=== PATIENT | male | born 1960 | race Caucasian/White ===

== ENCOUNTER 2018-12-05 16:43 | Emergency (ER) | payer SELFPAY ==
[2018-12-05] MEDS ORDERED: Sodium Chloride 0.9% 1,000 ML IV ONE ×2 (17:33→18:37)
--- NOTE | 2018-12-05 17:40 | EDM.PDOC ---
ED HPI GENERAL MEDICAL PROBLEM - General Chief Complaint: Diabetic Complaint Stated Complaint: DIABETIC ISSUES - SENT FROM [facility] Time Seen by Provider: 12/05/18 17:03 Source of Information: Reports: Patient, Old Records, Provider History Limitations: Reports: No Limitations - History of Present Illness INITIAL COMMENTS - FREE TEXT/NARRATIVE: 58 yo M w h/o DM2 w/ h/o hyperosmolarity, HTN, HLD, CAD, CKD II comes in today after being sent from [facility] for elevated glucose and urine ketones. Fasting glucose was found to be 433 and Ketones 40. He is asymptomatic. Only complaint is he is hungry as he has not eaten since last night. He does admit to not taking any of his medications for the past 10 days d/t "being busy" and "not having the money for my medications". He has not checked his sugars at home as he ran out of strips and "probably needs a new monitor", but states he tries to maintain a "good diet". He used to be on Farxiga, but stopped taking it "a long time ago" d/t it being too expensive. He has seen a diabetic counselor in the past. PCP: He was seeing Dr. Dumont but has since switched to NATALYA Leo at [place]. Labs from Clinic: CMP remarkable for Glu 433 (fasting), BUN 31, Cr 1.59, Cl 95, CO2 23, AGap 24, Alk Phos 167, A1C 11 Lipid Panel remarkable for Cholesterol 264, Tri 158, LDL 174 UA remarkable for Ketones 40, Protein 30, Glu >1000, Bacteria rare Urine microalbumin 150mg/L, Micro/Cr 30-300 - Related Data Allergies Allergy/AdvReac Type Severity Reaction Status Date / Time No Known Allergies Allergy Verified 12/05/18 16:49 Past Medical History HEENT History: Reports: Cataract, Impaired Vision Other HEENT History: wears eyeglasses. Start of cataracts. Cardiovascular History: Reports: High Cholesterol, Hypertension Respiratory History: Reports: Pneumonia, Recurrent Musculoskeletal History: Reports: Fracture Neurological History: Reports: Concussion, Head Trauma Endocrine/Metabolic History: Reports: Diabetes, Type II - Infectious Disease History Infectious Disease History: Reports: Measles, Mumps - Past Surgical History HEENT Surgical History: Reports: Tonsillectomy Musculoskeletal Surgical History: Reports: Shoulder Surgery Social & Family History - Tobacco Use Smoking Status *Q: Never Smoker Second Hand Smoke Exposure: No - Caffeine Use Caffeine Use: Reports: Coffee, Soda - Recreational Drug Use Recreational Drug Use: No ED ROS GENERAL - Review of Systems Review Of Systems: ROS reveals no pertinent complaints other than HPI. ED EXAM GENERAL NO PERIP PULSE - Physical Exam Exam: See Below Exam Limited By: No Limitations General Appearance: Alert, WD/WN, No Apparent Distress Eye Exam: Bilateral Eye: EOMI, Normal Inspection, PERRL Ears: Normal External Exam, Hearing Grossly Normal Throat/Mouth: Normal Inspection, Normal Lips, Normal Teeth, Normal Gums, Normal Oropharynx, Normal Voice, No Airway Compromise Head: Atraumatic, Normocephalic Neck: Normal Inspection, Supple, Non-Tender, Full Range of Motion Respiratory/Chest: No Respiratory Distress, Lungs Clear, Normal Breath Sounds, No Accessory Muscle Use, Chest Non-Tender Cardiovascular: Normal Peripheral Pulses, Regular Rate, Rhythm, No Edema, No Gallop, No JVD, No Murmur, No Rub GI/Abdominal: Normal Bowel Sounds, Soft, Non-Tender, No Organomegaly, No Distention, No Abnormal Bruit, No Mass Back Exam: Normal Inspection, Full Range of Motion, NT Neurological: Alert, Oriented, CN II-XII Intact, Normal Cognition, Normal Gait, Normal Reflexes, No Motor/Sensory Deficits Psychiatric: Normal Affect, Normal Mood Skin Exam: Warm, Dry, Intact Course - Vital Signs Last Recorded V/S: Last Vital Signs Temp 96.0 F 12/05/18 16:45 Pulse 98 12/05/18 16:45 Resp 20 12/05/18 16:45 BP 103/64 12/05/18 16:45 Pulse Ox 99 12/05/18 16:45 - Orders/Labs/Meds Orders: Active Orders 24 hr Category Date Time Status Blood Glucose Check, Bedside [RC] ONETIME Care 12/05/18 18:37 Active Labs: Laboratory Tests 12/05/18 12/05/18 12/05/18 Range/Units 17:00 17:00 18:23 Puncture Site Lt radial ABG pH 7.38 (7.35-7.45) ABG pCO2 33.8 L (35.0-45.0) mmHg ABG pO2 85.0 (80.0-100.0) mmHg ABG HCO3 19.4 L (22.0-26.0) meq/L ABG O2 Saturation 95.5 L (96.0-97.0) % ABG Base Excess -4.4 L (-2-2.0) Jeff Test Positive A-a Gradient 7 mmHg O2 Delivery Device Room air FiO2 21.00 (21.00-100.00) % POC Glucose (70-105) mg/dL Serum Osmolality 306 H (280-300) mosm/kg Ketones 5.19 (0.0-0.3) mM 12/05/18 12/05/18 12/05/18 Range/Units 18:42 19:30 20:23 Puncture Site ABG pH (7.35-7.45) ABG pCO2 (35.0-45.0) mmHg ABG pO2 (80.0-100.0) mmHg ABG HCO3 (22.0-26.0) meq/L ABG O2 Saturation (96.0-97.0) % ABG Base Excess (-2-2.0) Jeff Test A-a Gradient mmHg O2 Delivery Device FiO2 (21.00-100.00) % POC Glucose 385 H 352 H 320 H (70-105) mg/dL Serum Osmolality (280-300) mosm/kg Ketones (0.0-0.3) mM Meds: Medications Discontinued Medications Generic Name Dose Route Start Last Admin Trade Name Hoangq PRN Reason Stop Dose Admin Sodium Chloride 1,000 mls @ 999 mls/hr 12/05/18 17:33 12/05/18 18:02 Normal Saline IV 12/05/18 18:33 999 mls/hr ONETIME ONE Administration Sodium Chloride 1,000 mls @ 999 mls/hr 12/05/18 18:37 12/05/18 19:01 Normal Saline IV 12/05/18 19:37 999 mls/hr ONETIME ONE Administration Insulin Human Lispro 10 unit 12/05/18 19:40 Humalog SUBCUT 12/05/18 19:41 ONETIME ONE Insulin Human Lispro 10 unit 12/05/18 19:45 12/05/18 20:04 Humalog SUBCUT 12/05/18 19:46 Not Given ONETIME ONE Insulin Human Regular 10 unit 12/06/18 19:45 Humulin R SUBCUT 12/06/18 19:46 ONETIME ONE Insulin Human Regular Confirm 12/05/18 19:53 12/05/18 19:58 Humulin R Administered 12/05/18 19:54 Not Given Dose 300 unit .ROUTE .STK-MED ONE Insulin Human Regular 10 unit 12/05/18 19:45 12/05/18 19:57 Humulin R SUBCUT 12/05/18 19:46 10 units ONETIME ONE Administration Metformin HCl 1,000 mg 12/06/18 17:00 [facility] Metformin HCl 1,000 mg 12/06/18 17:00 Glucophage [facility] Metformin HCl 1,000 mg 12/05/18 19:46 12/05/18 20:03 [facility] Re-Assessments/Exams Free Text/Narrative Re-Assessment/Exam: 12/05/18 17:42 Labs from Clinic: CMP remarkable for Glu 433 (fasting), BUN 31, Cr 1.59, Cl 95, CO2 23, AGap 24, Alk Phos 167, A1C 11 Lipid Panel remarkable for Cholesterol 264, Tri 158, LDL 174 UA remarkable for Ketones 40, Protein 30, Glu >1000, Bacteria rare Urine microalbumin 150mg/L, Micro/Cr 30-300 12/05/18 17:42 Ordered ABG, Serum osmolality and serum ketones 2L NS IV bolus ordered 12/05/18 18:23 ABG shows pH WNL at 7.38, pCO2 33.8, HCO3 19.4, O2 95.5, Base excess -4.4 Serum osmolality 306 Serum ketones 5.[address] Falk- Pt is ketotic, but not in acidosis. He has no altered LOC. 12/05/18 18:37 1L IVF given, Bedside glucose check 385 12/05/18 19:37 Bedside glucose check after 2nd bolus of IVF down to 352. Will give 10U Humalog. 12/05/18 20:07 Bedside glucose check 320 after 10U Humalog 12/05/18 20:10 At this time pt is stable and feeling good. He will brass pickler his prescriptions from his PCP from his pharmacy and states he will check his Blood Sugar at home. Will need to also f/u with security escort regarding how to keep up with his medications and if there is any way to alleviate the cost. He states he understands and agrees with this plan. Departure - Departure Time of Disposition: 20:28 Disposition: Home, Self-Care 01 Condition: Fair Clinical Impression: Ketosis due to diabetes, Hyperglycemia - Discharge Information *PRESCRIPTION DRUG MONITORING PROGRAM REVIEWED*: Not Applicable *COPY OF PRESCRIPTION DRUG MONITORING REPORT IN PATIENT CARLOS: Not Applicable Instructions: Tips for Eating Away From Home If You Have Diabetes, Hyperglycemia, [id number], Blood Glucose Monitoring, Adult, Preventing Diabetic Ketoacidosis, Diabetes Mellitus and Nutrition, Adult Referrals: Erlinda Guzman MD [Primary Care Provider] - Forms: ED Department Discharge Additional Instructions: You were seen in the ED today after having high glucose at the clinic. It was found that you have high glucose and ketosis (ketones are a type of acid that were released in your bloodstream). This can become life threatening if not treated, but at this time you were treated before it got worse and are now stable enough to go home. You were given IV fluids and insulin while here. Recommend restarting your diabetic medications, as you stopped taking them for 10 days which most likely caused this to happen. Also recommend follow up with your primary care provider, as well as a district leader, who could help find ways to afford your medicine. Please return to ED if new or worsening symptoms. - My Orders Last 24 Hours: My Active Orders 12/05/18 18:37 Blood Glucose Check, Bedside [RC] ONETIME - Assessment/Plan Last 24 Hours: My Active Orders 12/05/18 18:37 Blood Glucose Check, Bedside [RC] ONETIME
[2018-12-05] MEDS ORDERED: Insulin Lispro 100 Units/ML 3 ML Vial SUBCUT ONE ×3 (19:40→19:49)
[2018-12-05] MEDS ORDERED: Insulin Regular, Human 100 Units/ML 3 ML Vial SUBCUT ONE (19:45)
[2018-12-05] MEDS ORDERED: metFORMIN 500 MG Tab PO SCH (19:46)
[2018-12-05] MEDS ORDERED: Insulin Regular, Human 100 Units/ML 3 ML Vial ONE (19:53)
[2018-12-06] MEDS ORDERED: metFORMIN 500 MG Tab PO SCH ×2 (17:00)
[2018-12-06] MEDS ORDERED: Insulin Regular, Human 100 Units/ML 3 ML Vial SUBCUT ONE (19:45)
== END 2018-12-05 21:00 | disposition home or self-care (01) ==
LOC: JD.ED 16:43
DX: E11.10 Type 2 diabetes mellitus with ketoacidosis without coma (principal); E11.65 Type 2 diabetes mellitus with hyperglycemia; E78.00 Pure hypercholesterolemia, unspecified; I12.9 Hypertensive chronic kidney disease with stage 1 through stage 4 chronic kidney disease, or unspecified chronic kidney disease; N18.2 Chronic kidney disease, stage 2 (mild); I25.10 Atherosclerotic heart disease of native coronary artery without angina pectoris; E78.5 Hyperlipidemia, unspecified
CPT/HCPCS: 36415; 36600; 82009; 82803; 82962; 83930; 96360; 96372; 99283; J7040